=== PATIENT | male | born 1990 | race Caucasian/White ===

== ENCOUNTER 2016-09-09 22:22 | Emergency (ER) | payer OTHER ==
[~2016-09-09] VITALS: Ht 180.3 cm; Wt 85.9 kg
[2016-09-09 22:26] VITALS: TEMP 36.8; Ht 180.3 cm; Wt 85.9 kg
[2016-09-09] MEDS ORDERED: KETOCONAZOLE 2% CR 15 GM TUBE EXT STA (23:48)
--- NOTE | 2016-09-09 23:56 | EMERGENCY ROOM VISIT NOTE ---
History Report prepared by Vania: Paramjit Cade Under the Supervision of: Dr. Faustino Cash M.D. First contact with patient: 23:40 Chief Complaint: ALLERGIC REACTION Stated Complaint: SWELLING AND INTENSE ITCHING ON GENITALS History of Present Illness The patient is a 25 year old male who presents to the Emergency Room with complaints of worsening itching of the penis beginning one day prior to arrival. He currently rates his discomfort as a 2/10 in severity. The patient associates swelling to the genitals with today's symptoms. He states he believed he had "jock itch", so he used Lotrimin to relieve his symptoms. The patient notes he experienced immediately relief after the first application, then noticed the swelling and itch at the base of his penis before his second application. He states his last application was approximately an hour ago. The patient notes he was outside over the weekend in the heat. The patient notes he had STD testing, and he was clean and has not had unprotected sex since the testing. He states he was placed on azithromycin a week and a half ago for a cold--he is no longer taking this medication. The patient denies a fever and difficulty urinating. 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 Review of Systems See HPI for pertinent positives & negatives. A total of 10 systems reviewed and were otherwise negative. Past Medical & Surgical Medical Problems: (1) No pertinent past medical history Family History Cancer Diabetes mellitus FHx: gallbladder disease Social History Smoking Status: Never Smoker Marital Status: single Occupation Status: [employer] 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 HEENT: No acute trauma, normocephalic atraumatic, mucous membranes moist, no nasal congestion, no scleral icterus. NECK: No stridor, no adenopathy, no meningismus, trachea is midline. LUNGS: Clear to auscultation bilaterally, no wheeze, no rhonchi, breath sounds equal. HEART: Without murmurs gallops or rubs, regular rate and rhythm. ABDOMEN: Soft, nontender, bowel sounds positive, no hernias, no peritonitis. EXTREMITIES: No cyanosis or edema, full range of motion of all the joints without pain or difficulty, no signs for acute trauma. NEUROLOGIC: Oriented x 3, no acute motor or sensory deficits, no focal weakness. SKIN: Erythema down the penile shaft and some on the scrotum consistent with a yeast infection. No cellulitis. Circumcised. Medical Decision & Procedures Medications Administered Medications (Trade) Dose Ordered Sig/Wagner Route Start Time Stop Time Status Last Admin Dose Admin Fluconazole (Diflucan Tab) 150 mg NOW ONCE PO 09/10/16 00:00 09/10/16 00:01 DC 09/10/16 00:06 150 MG Ketoconazole (Nizoral 2% Crm) 1 appln NOW STAT EXT 09/09/16 23:48 09/09/16 23:52 DC 09/10/16 00:06 1 APPLN ED Course 2340: The patient was evaluated in room B5. A complete history and physical exam was performed. 2348: Ordered Ketoconazole 1 appln EXT. 0000: Ordered Fluconazole 150 mg PO. 0005: Reevaluated the patient. Discussed results and discharge instructions: He verbalized understanding and agreement. The patient is ready for discharge. Medical Decision The differential diagnoses include but are not limited to: cellulitis, STD, yeast infection. The patient presents with itchiness and rash on the penis and scrotum. He appears to have a yeast infection. He did not do well with Lotrimin over-the- counter so I will switch him to Ketoconazole cream. He also will be on oral Diflucan. A dose of Diflucan was given prior to discharge. The patient was encouraged to return for worsening symptoms. He was told to keep the area dry. Benadryl or Claritin was suggested for itching. Impression Primary Impression: Tinea cruris Scribe Attestation The scribe's documentation has been prepared under my direction and personally reviewed by me in its entirety. I confirm that the note above accurately reflects all work, treatment, procedures, and medical decision making performed by me. Departure Information Dispostion Home / Self-Care Prescriptions Ketoconazole (Ketoconazole) 45 Appln/15 Gm Cr 1 APPLN TOP BID for 14 Days, #1 TUBE 2 Refills Prov: Faustino Cash M.D. 09/10/16 Fluconazole (DIFLUCAN) 100 Mg Tab 1 TAB PO DAILY for 5 Days, #5 TAB Prov: Faustino Cash M.D. 09/10/16 Forms HOME CARE DOCUMENTATION FORM, IMPORTANT VISIT INFORMATION Patient Instructions My [facility] Additional Instructions diflucan 1 tab daily for 5 days use Ketoconazole ointment 2x per day to the rash--use it for 1 week after it seems to clear return for fever or worsening symptoms use benadryl or claritin for the itching keep the area dry no sex for a few weeks
[2016-09-10] MEDS ORDERED: FLUC100T4 PO
[2016-09-10] MEDS ORDERED: NZRCR TOP
[2016-09-10] MEDS ORDERED: FLUCONAZOLE 50 MG TAB PO ONE
[2016-09-10 00:09] VITALS: BP 153/72; PULSE 73; O2SAT 95
== END 2016-09-10 00:10 | disposition home or self-care (01) ==
LOC: C.EDB 22:23
DX: B35.6 Tinea cruris (principal)